=== PATIENT | male | born 2000 | race American Indian/Alaskan Native ===

== ENCOUNTER 2019-05-09 12:55 | Emergency (ER) | payer SELFPAY ==
[~2019-05-09] VITALS: Ht 185.4 cm; Wt 11.4 kg
[2019-05-09] MEDS ORDERED: IBUPROFEN 400 MG TABLET PO ONE (14:30)
[2019-05-09 15:40] VITALS: BP 125/74
== END 2019-05-09 16:04 | disposition home or self-care (01) ==
LOC: EMS 12:59
DX: S93.601A Unspecified sprain of right foot, initial encounter (principal); X58.XXXA Exposure to other specified factors, initial encounter; Y93.89 Activity, other specified; Y92.89 Other specified places as the place of occurrence of the external cause; Y99.0 Civilian activity done for income or pay